=== PATIENT | male | born 1960 | race Caucasian/White ===

== ENCOUNTER → 2016-05-16 | Outpatient (CLI) | payer MEDICARE, OTHER ==
[~2016-05-16] MED LIST: ASPIRIN EC81 MG PO; FISH OIL 1,2001 EAC2 PO; LIPITOR TAB 2020 MG PO; TOPROL XL 50 MG50 MG PO; ZESTRIL 40 MG T40 MG PO
[2016-05-16 13:32] LABS: HEMOGLOBIN 14.1 gm/dl (14.0-17.5); RED BLOOD COUNT 4.53 M/UL (4.20-5.50); WHITE BLOOD COUNT 7.1 K/UL (4.5-11.0)
== END ==
LOC: LAB 11:49
PROVIDERS: Internal Medicine Nephrology
DX: I12.9 Hypertensive chronic kidney disease with stage 1 through stage 4 chronic kidney disease, or unspecified chronic kidney disease (principal); N18.3 Chronic kidney disease, stage 3 (moderate); N25.81 Secondary hyperparathyroidism of renal origin; I71.6 Thoracoabdominal aortic aneurysm, without rupture; J06.9 Acute upper respiratory infection, unspecified; J20.8 Acute bronchitis due to other specified organisms; K21.9 Gastro-esophageal reflux disease without esophagitis; M13.871 Other specified arthritis, right ankle and foot
CPT/HCPCS: 36415; 80053; 80061; 82043; 82570; 83704; 83970; 84100; 85027

== ENCOUNTER → 2016-07-19 | Outpatient (CLI) | payer MEDICARE, OTHER ==
[2016-07-19 15:05] LABS: HEMOGLOBIN 14.8 gm/dl (14.0-17.5); RED BLOOD COUNT 4.7 M/UL (4.20-5.50); WHITE BLOOD COUNT 7.9 K/UL (4.5-11.0)
== END ==
LOC: LAB 14:40
PROVIDERS: Emergency Medicine
DX: I12.9 Hypertensive chronic kidney disease with stage 1 through stage 4 chronic kidney disease, or unspecified chronic kidney disease (principal); N18.3 Chronic kidney disease, stage 3 (moderate); E78.2 Mixed hyperlipidemia; I71.6 Thoracoabdominal aortic aneurysm, without rupture; J06.9 Acute upper respiratory infection, unspecified; J20.8 Acute bronchitis due to other specified organisms; K21.9 Gastro-esophageal reflux disease without esophagitis; M13.871 Other specified arthritis, right ankle and foot
CPT/HCPCS: 36415; 80053; 80061; 83704; 85027

== ENCOUNTER 2016-08-06 16:36 | Observation (INO) | payer MEDICARE, OTHER ==
[~2016-08-06] VITALS: Ht 177.8 cm; Wt 113.4 kg
[2016-08-06 21:20] LABS: HEMOGLOBIN 14.6 gm/dl (14.0-17.5); RED BLOOD COUNT 4.61 M/UL (4.20-5.50); WHITE BLOOD COUNT 8.4 K/UL (4.5-11.0)
[2016-08-07] MEDS ORDERED: TOPROL XL 50 MG50 MG PO (00:37)
[2016-08-07] MEDS ORDERED: ZESTRIL 40 MG T40 MG PO (00:37)
[2016-08-07] MEDS ORDERED: ASPIRIN EC81 MG PO (00:38)
[2016-08-07] MEDS ORDERED: LIPITOR TAB 2020 MG PO (00:38)
[2016-08-07] MEDS ORDERED: FISH OIL 1,2001 EAC2 PO (01:04)
[2016-08-07 05:51] LABS: HEMOGLOBIN 13.8 gm/dl (14.0-17.5); RED BLOOD COUNT 4.35 M/UL (4.20-5.50); WHITE BLOOD COUNT 6.7 K/UL (4.5-11.0)
[2016-08-08 06:31] LABS: HEMOGLOBIN 14.3 gm/dl (14.0-17.5); RED BLOOD COUNT 4.58 M/UL (4.20-5.50)
== END 2016-08-08 08:23 | disposition home or self-care (01) ==
LOC: ER1 16:36 → ZEROF 23:36 → M/S 23:36
PROVIDERS: Family Medicine; ADMIT Emergency Medicine
DX: G45.9 Transient cerebral ischemic attack, unspecified (principal); I12.9 Hypertensive chronic kidney disease with stage 1 through stage 4 chronic kidney disease, or unspecified chronic kidney disease; N18.3 Chronic kidney disease, stage 3 (moderate); E78.5 Hyperlipidemia, unspecified; Z86.79 Personal history of other diseases of the circulatory system; Z86.69 Personal history of other diseases of the nervous system and sense organs; Z87.442 Personal history of urinary calculi; Z87.891 Personal history of nicotine dependence; Z79.82 Long term (current) use of aspirin; Z79.899 Other long term (current) drug therapy
CPT/HCPCS: ECHO; 36415; 70450; 70551; 71010; 80048; 80053; 80061; 81001; 82550; 82553; 83874; 84443; 84484; 85025; 85610; 85730; 87086; 93005; 93306; 93880; 99285; G0378

== ENCOUNTER → 2020-07-26 | Day surgery (SDC) | payer OTHER ==
[~2020-07-26] MED LIST changes: +NORVASC2.5 MG PO; +PLAVIX 75 MG TA75 MG PO; +PROTONIX 40 MG40 M1 PO
== END | disposition home or self-care (01) ==
LOC: OR 06:01
DX: D12.4 Benign neoplasm of descending colon (principal); K64.8 Other hemorrhoids; E66.01 Morbid (severe) obesity due to excess calories; I10 Essential (primary) hypertension; I51.9 Heart disease, unspecified; K21.9 Gastro-esophageal reflux disease without esophagitis; K57.30 Diverticulosis of large intestine without perforation or abscess without bleeding; Z79.82 Long term (current) use of aspirin
CPT/HCPCS: J2250; J2704; J3010; J7040

== ENCOUNTER 2020-11-07 21:22 | Emergency (ER) | payer OTHER ==
[2020-11-07 22:48] LABS: HEMOGLOBIN 15.5 gm/dl (14.0-17.5); RED BLOOD COUNT 4.74 M/UL (4.20-5.50); WHITE BLOOD COUNT 7.7 K/UL (4.5-11.0)
[2020-11-07 23:13] LABS: BUN/CREATININE RATIO 13 (0-10)
== END 2020-11-08 08:55 | disposition home or self-care (01) ==
LOC: ER1 21:22
PROVIDERS: Physician Assistant
DX: R10.9 Unspecified abdominal pain (principal); R07.9 Chest pain, unspecified; E78.5 Hyperlipidemia, unspecified; I10 Essential (primary) hypertension
CPT/HCPCS: 71045; 80053; 81001; 82550; 82553; 83690; 83874; 84484; 85025; 87086; 93005; 99285; J7030; Q9965

== ENCOUNTER 2021-06-08 13:01 | Inpatient (IN) | payer MEDICARE, OTHER ==
[~2021-06-08] VITALS: Ht 177.8 cm; Wt 114.3 kg
[~2021-06-08 13:01] MED LIST changes: -LIPITOR TAB 2020 MG PO; -NORVASC2.5 MG PO; -PROTONIX 40 MG40 M1 PO
[2021-06-08 13:46] LABS: HEMOGLOBIN 16.8 gm/dl (14.0-17.5); RED BLOOD COUNT 5.18 M/UL (4.20-5.50); WHITE BLOOD COUNT 11.1 K/UL (4.5-11.0)
[2021-06-08] MEDS ORDERED: LOPRESSOR 50 MG50 MG PO (19:34)
[2021-06-09] MEDS ORDERED: LIPITOR80 MG PO (00:38)
[2021-06-09 04:40] LABS: WHITE BLOOD COUNT 9.1 K/UL (4.5-11.0)
[2021-06-09 04:48] LABS: HEMOGLOBIN 13.7 gm/dl (14.0-17.5); RED BLOOD COUNT 4.34 M/UL (4.20-5.50)
[2021-06-09] MEDS ORDERED: NORVASC10 MG PO (06:07)
[2021-06-09] MEDS ORDERED: PROTONIX 40 MG40 M1 PO (06:41)
== END 2021-06-11 13:51 | disposition home or self-care (01) | DRG 683 ==
LOC: ER1 13:01 → M/S 17:31 → CDU 17:31 → M/S 17:56
PROVIDERS: Internal Medicine Nephrology; Physician Assistant Medical; ADMIT Internal Medicine
DX: N17.9 Acute kidney failure, unspecified (principal); E87.2 Acidosis; E87.3 Alkalosis; I71.4 Abdominal aortic aneurysm, without rupture; Z20.822 Contact with and (suspected) exposure to COVID-19; F17.200 Nicotine dependence, unspecified, uncomplicated; E66.9 Obesity, unspecified; N18.30 Chronic kidney disease, stage 3 unspecified; K52.9 Noninfective gastroenteritis and colitis, unspecified; I95.9 Hypotension, unspecified; E86.0 Dehydration; I12.9 Hypertensive chronic kidney disease with stage 1 through stage 4 chronic kidney disease, or unspecified chronic kidney disease; Z86.73 Personal history of transient ischemic attack (TIA), and cerebral infarction without residual deficits; Z88.8 Allergy status to other drugs, medicaments and biological substances; Z98.890 Other specified postprocedural states; Z68.36 Body mass index [BMI] 36.0-36.9, adult
CPT/HCPCS: 36415; 36600; 80048; 80053; 81001; 82009; 82550; 82553; 82800; 83605; 83690; 83735; 84133; 84300; 84484; 85025; 87086; 89050; 93005; 96374; 99285; J1644; J2405; P9047; U0002

== ENCOUNTER → 2021-06-19 | Outpatient (CLI) | payer MEDICARE, OTHER ==
[~2021-06-19] MED LIST changes: +LIPITOR80 MG PO; +LOPRESSOR 50 MG50 MG PO; +NORVASC10 MG PO; +PROTONIX 40 MG40 M1 PO
[2021-06-19 13:58] LABS: HEMOGLOBIN 13.4 gm/dl (14.0-17.5); RED BLOOD COUNT 4.26 M/UL (4.20-5.50); WHITE BLOOD COUNT 6.9 K/UL (4.5-11.0)
[2021-06-20 11:17] LABS: CREATININE, URINE 169.6 mg/dL (Not Estab.)
[2021-06-21 10:15] LABS: CHOLESTEROL, TOTAL 121 mg/dL (100-199); HDL SIZE 8.7 nm (>=9.2); HDL-C 36 mg/dL (>39); HDL-P (TOTAL) 26.8 umol/L (>=30.5); LARGE HDL-P 3.3 umol/L (>=4.8); LARGE VLDL-P 11.4 nmol/L (<=2.7); LDL SIZE 20.1 nm (>20.5); LDL SIZE 20.1 nm (>=20.8); LDL-C 52 mg/dL (0-99); LDL-P 665 nmol/L (<1000); LP-IR SCORE 79 (<=45); SMALL LDL-P 413 nmol/L (<=527); TRIGLYCERIDES 206 mg/dL (0-149); VLDL SIZE 54.9 nm (<=46.6)
== END ==
LOC: LAB 13:41
PROVIDERS: Emergency Medicine; Internal Medicine Nephrology
DX: I12.9 Hypertensive chronic kidney disease with stage 1 through stage 4 chronic kidney disease, or unspecified chronic kidney disease (principal)
CPT/HCPCS: 36415; 80053; 80061; 82043; 82570; 83704; 84156; 84443; 84550; 85025

== ENCOUNTER → 2021-10-02 | Outpatient (CLI) | payer MEDICARE, OTHER | LOC: WCC 07:11 | DX: S31.109A Unspecified open wound of abdominal wall, unspecified quadrant without penetration into peritoneal cavity, initial encounter (principal); I10 Essential (primary) hypertension; I73.9 Peripheral vascular disease, unspecified; E66.01 Morbid (severe) obesity due to excess calories; E78.5 Hyperlipidemia, unspecified; J44.9 Chronic obstructive pulmonary disease, unspecified; Z87.891 Personal history of nicotine dependence; Z68.37 Body mass index [BMI] 37.0-37.9, adult ==

== ENCOUNTER → 2021-10-09 | Outpatient (CLI) | payer MEDICARE, OTHER | LOC: WCC 07:12 | DX: S31.109A Unspecified open wound of abdominal wall, unspecified quadrant without penetration into peritoneal cavity, initial encounter (principal); I10 Essential (primary) hypertension; I73.9 Peripheral vascular disease, unspecified; E66.01 Morbid (severe) obesity due to excess calories; J44.9 Chronic obstructive pulmonary disease, unspecified; X58.XXXA Exposure to other specified factors, initial encounter ==

== ENCOUNTER → 2021-10-23 | Outpatient (CLI) | payer MEDICARE, OTHER | LOC: WCC 06:44 | DX: S31.109A Unspecified open wound of abdominal wall, unspecified quadrant without penetration into peritoneal cavity, initial encounter (principal); I10 Essential (primary) hypertension; I73.9 Peripheral vascular disease, unspecified; E66.01 Morbid (severe) obesity due to excess calories; J44.9 Chronic obstructive pulmonary disease, unspecified; E78.5 Hyperlipidemia, unspecified ==

== ENCOUNTER → 2021-11-07 | Outpatient (CLI) | payer MEDICARE, OTHER ==
[2021-11-08 12:12] LABS: CREATININE, URINE 135.2 mg/dL (Not Estab.)
== END ==
LOC: LAB 09:42
PROVIDERS: Emergency Medicine
DX: E78.2 Mixed hyperlipidemia (principal); I12.9 Hypertensive chronic kidney disease with stage 1 through stage 4 chronic kidney disease, or unspecified chronic kidney disease; N18.30 Chronic kidney disease, stage 3 unspecified
CPT/HCPCS: 36415; 80053; 82043; 82570; 84156

== ENCOUNTER → 2021-11-07 | Outpatient (CLI) | payer MEDICARE, OTHER | LOC: WCC 07:45 | DX: Z09 Encounter for follow-up examination after completed treatment for conditions other than malignant neoplasm (principal); E78.5 Hyperlipidemia, unspecified; I10 Essential (primary) hypertension; I73.9 Peripheral vascular disease, unspecified; J44.9 Chronic obstructive pulmonary disease, unspecified | CPT/HCPCS: G0463 ==